=== PATIENT | female | born 1970 | race Caucasian/White ===

== ENCOUNTER 2020-11-20 11:18 | Inpatient (IN) | payer MEDICAID ==
[~2020-11-20] VITALS: Ht 172.7 cm; Wt 116.8 kg
[~2020-11-20 11:18] MED LIST: NORCO 325 MG-51 TAB PO
[2020-12-27] VITALS (12 sets, daily range): BP systolic 103–154; BP diastolic 47–98; PULSE 63–88; TEMP 97.5–98.4
[2020-12-27] MEDS ORDERED: ZOVIRAX800 MG PO (06:33)
[2020-12-27] MEDS ORDERED: TOFRANIL 25MG T25 MG PO (06:34)
[2020-12-27] MEDS ORDERED: ATIVAN 1MG T1 MG/TAB PO (06:36)
[2020-12-27] MEDS ORDERED: SYNTHROID0.05 MG/TA PO (06:37)
[2020-12-27] MEDS ORDERED: ROBAXIN 75750 MG/TAB PO (06:39)
[2020-12-27] MEDS ORDERED: ZOFRAN8 MG PO (06:40)
[2020-12-27] MEDS ORDERED: PRAVACHOL 20MG20 MG PO (06:40)
[2020-12-27] MEDS ORDERED: IMITREX 25MG TA25 MG PO (06:42)
[2020-12-27] MEDS ORDERED: LYRICA 150MG C150 MG PO (06:43)
[2020-12-27] MEDS ORDERED: DAZIDOX10 MG PO (06:43)
[2020-12-27] MEDS ORDERED: CYANOCOBAL1000 MCG/M IM (06:45)
--- NOTE | 2020-12-27 07:00 | NUR ---
Patient reports childhood reactions to codine and hydrocodone when taken concurrently with penicillin. Patient reports regularly taking oxycodone without reactions or complications.
--- NOTE | 2020-12-27 10:40 | NUR ---
Patient arrived to her room at 09:50 am this morning. She is currently resting in bed, call light in reach and sister by her side. Denies pain at this time.
--- NOTE | 2020-12-27 20:11 | NUR ---
Patient's VSS this shift. Bandage to right knee has stayed CDI this shift. Patient's pain has been a radiating pain from right knee that wraps around to the right side of her back. Ranging from 5/10 to 10/10 pain. Given multiple prn pain meds with some effect finally taking hold at 18:45 this evening having 8/10 pain. Patient was a two max assist with transferring to the Bed side commode due to pain. Ice packs in place on right knee. Patient ate all her lunch this afternoon with no difficulties. Family was by her side most of the day. Patient currently resting in bed, call light in reach and this nurse reported off to night nurse.
--- NOTE | 2020-12-28 03:38 | NUR ---
PATIENT POD #1 RT TOTAL KNEE ARTHROPLASTY. ALERT AND ORIENTED X4. PATIENT OOB WITH 2 MAX ASSIST TO BEDSIDE COMMODE. PAIN MANAGE WITH OXYCONE 10 MG. VITAL STABLE. PATIENT DENIES NUMBNESS TINGLING TO LOWER EXTREMITIES. ZOFRAN 4 MG GIVEN FOR NAUSEA. TOLERATED GENERAL DIET. WILL CONTINUE TO MONITOR.
[2020-12-28 04:05] VITALS: BP 151/78; PULSE 83; TEMP 98.7
[2020-12-28 06:45] LABS: HEMATOCRIT 41.6 % (37.0-47.0)
--- NOTE | 2020-12-28 06:55 | NUR ---
bedside shift report received from DANYEL Palma
--- NOTE | 2020-12-28 07:45 | NUR ---
lying on left side and appears to be sleeping, resp quiet and easy
[2020-12-28 07:47] VITALS: BP 147/72; PULSE 90; TEMP 98.6
--- NOTE | 2020-12-28 08:20 | NUR ---
resting in bed with eyes closed, with resp quiet and easy, after awakened she begins to moan and becomes tearful, she does states some of the pain is also in her back and that she has chronic back pain, explained it is too early for pain pills but when it is time will provide, full assessment completed, see interventions for further info
--- NOTE | 2020-12-28 09:20 | NUR ---
resting in chair after physical therapy in to work with patient, c/o pain and medicated with oxycodone 10mg po, occupational therapy in to work with patient
--- NOTE | 2020-12-28 10:20 | NUR ---
remains up in chair and appears to be sleeping, bedside shift report given to DANYEL Sun
[2020-12-28 11:12] VITALS: BP 149/84; PULSE 80; TEMP 97.9
--- NOTE | 2020-12-28 13:18 | NUR ---
Initial visit attempt; Patient sleeping. Supervisor Order Takers left Prayer card letting patient know of the availability of spiritual care at our hospital.
[2020-12-28 15:28] VITALS: BP 135/73; BP 135/733; PULSE 87; TEMP 98.1
--- NOTE | 2020-12-28 15:51 | NUR ---
[facility] met with the patient to complete intake. The patient lives in [place] with her daughter, Kristen and sister, Gladys. The patient states she is independent with ADLs. The patient has walker and cane. The patient's PCP is Dr. Tompkins and patient receives medications from [facility] in [place] but will need medication order sent to [facility] at discharge. The patient does not have advanced directives. The patient is not and has one daughter. The patient plans to return home at discharge with OP PT at [facility] and will begin on Friday, 01/01. *Discharge disposition: Home with family and OP PT at [facility]*
--- NOTE | 2020-12-28 16:00 | NUR ---
Dressing change to right knee. Incision CDI, aqualcell applied. Leg elevated on 1 pillow. Ice pack on right knee. Patient reporting pain 6/10. Medication given as requested. No further needs expressed from the patient. Call light within reach
--- NOTE | 2020-12-28 17:31 | NUR ---
Patient has been resting most of the day in the recliner. Has had complaints of pain and pain medication given when requested. Right knee elevated on pillow. Call light within reach.
--- NOTE | 2020-12-28 19:00 | NUR ---
RECEIVED CHANGE OF SHIFT REPORT FROM DAY SHIFT NURSE. PATIENT RESTING IN BED, ICE BAG RENEWED AND PLACED TO R KNEE.
[2020-12-28 19:14] VITALS: BP 149/66; PULSE 88; TEMP 99
[2020-12-28 23:52] VITALS: BP 147/87; PULSE 102; TEMP 99
--- NOTE | 2020-12-29 01:17 | NUR ---
PATIENT REQUESTED/GIVEN PAIN MED FOR C/O SPASMS TO RLE. SEE MAR FOR MEDS GIVEN. DENIES ANY ADDITIONAL NEEDS AT THIS TIME.
[2020-12-29 03:43] VITALS: BP 151/84; PULSE 116; TEMP 98.6
--- NOTE | 2020-12-29 07:05 | NUR ---
CHANGE OF SHIFT REPORT GIVEN TO DAY SHIFT NURSE, PHAM MONTAÑO.
[2020-12-29 07:35] VITALS: BP 137/87; PULSE 106; TEMP 98.1
--- NOTE | 2020-12-29 10:00 | NUR ---
Patient alert and oriented, answers questions appropriately. See assessment. RLE with pulses palpable, no numbness or tingling. Aquacel in place to right knee, no drainage noted. FWB. Post op exercises reviewed with patient. No c/o at this time.
[2020-12-29 11:34] VITALS: BP 140/98; PULSE 100; TEMP 98.2
[2020-12-29] MEDS ORDERED: ASPI325T6 PO (14:36)
[2020-12-29] MEDS ORDERED: DAZIDOX10 MG PO (14:37)
[2020-12-29] MEDS ORDERED: SENOKOT S 50 MG1 TAB PO (14:38)
--- NOTE | 2020-12-29 15:45 | NUR ---
Patient ambulated with standby assist, gait belt and walker greater than 100ft. Tolerated well.
--- NOTE | 2020-12-29 17:52 | NUR ---
Discharge instructions reviewed with patient, verbalized understanding. Discharged via wheelchair to auto/home with family at 1750.
== END 2020-12-29 17:50 | disposition home or self-care (01) | DRG 470 ==
LOC: SURG 12-27 05:24 → SDCO 12-27 05:24 → EDSTATUS 12-27 07:30 → SURG 12-27 07:30 → SDCO 12-27 10:25 → SURG 12-28 07:59 → SDCO 12-29 08:00 → SURG 12-29 08:00 → SDCO 12-29 17:50
PROVIDERS: ADMIT Orthopaedic Surgery
PROC: 0SRC0J9 Replacement of Right Knee Joint with Synthetic Substitute, Cemented, Open Approach (ICD-10-PCS; principal; 2020-12-27 07:30)
DX: M17.11 Unilateral primary osteoarthritis, right knee (principal); E78.00 Pure hypercholesterolemia, unspecified; S39.92XS Unspecified injury of lower back, sequela; S19.9XXS Unspecified injury of neck, sequela; M79.7 Fibromyalgia; M17.12 Unilateral primary osteoarthritis, left knee; I86.8 Varicose veins of other specified sites; E07.9 Disorder of thyroid, unspecified; G89.29 Other chronic pain; M54.5 Low back pain; M54.2 Cervicalgia; E66.01 Morbid (severe) obesity due to excess calories; J30.2 Other seasonal allergic rhinitis; G43.809 Other migraine, not intractable, without status migrainosus; M19.90 Unspecified osteoarthritis, unspecified site; Z68.38 Body mass index [BMI] 38.0-38.9, adult; Z79.891 Long term (current) use of opiate analgesic; Z79.899 Other long term (current) drug therapy; Z82.61 Family history of arthritis
CPT/HCPCS: OP; A9284; C1713; C1776; G0378; J0690; J2250; J2270; J2405; J2704; J7030; J7120